=== PATIENT | female | born 1995 ===

== ENCOUNTER 2016-08-18 01:07 | Emergency (ER) | payer OTHER | END 2016-08-18 03:29 | disposition home or self-care (01) | LOC: ED 01:07 | DX: S61.211A Laceration without foreign body of left index finger without damage to nail, initial encounter (principal); W45.8XXA Other foreign body or object entering through skin, initial encounter; Y92.008 Other place in unspecified non-institutional (private) residence as the place of occurrence of the external cause; Y99.8 Other external cause status ==